=== PATIENT | male | born 1940 | race Caucasian/White ===

== ENCOUNTER 2017-10-09 11:56 | Emergency (ER) | payer MEDICARE, OTHER ==
[~2017-10-09] VITALS: Ht 167.6 cm; Wt 73.0 kg
[~2017-10-09 11:56] MED LIST: AMOX500T10 PO; ASPI-715 PO; ASPI81TA94 PO; AZIT-1 PO; BP MEDS; CEPH-13 PO; CHOL10005 PO; FAMO20TA28 PO; HYDR-385 PO; IBUP-2708 PO; LORA-1456 PO; MECL12.5 PO; MELA5TAB6 PO; OMEP-125 PO; OXYC-373 PO; OXYC-865 PO; PNEU0.5D3 IM; PRED20TA6 PO; ROBC PO; ROSU20TA23 PO; SIMV-44 PO; SIMV-54 PO; TAM4 PO; TAMS0.4C70 PO; TETR15DR81 OP; TRAM-420 PO; TRAZ-133 PO; TRAZ-156 PO
--- NOTE | 2017-10-09 12:07 | ER Report ---
History and Physical Time Seen By MD: 12:06 HPI/ROS CHIEF COMPLAINT: Left-sided rib pain HISTORY OF PRESENT ILLNESS: 76-year-old male patient presents to emergency room with complaint of left-sided rib pain. Patient states that he's been having rib pain for the past month. He states that over last several days been significant and worse. Patient states he feels like the pain radiates into his back. He denies any nausea, vomiting or diarrhea. States he does have increasing discomfort with deep inspiration. Patient denies any injury to the area. Patient states he did have an episode of sneezing where he had 6-10 sneezes in quick secession. Patient states after that he has had pain. Patient states it radiates to the middle of his back. The patient has been taking tramadol with little improvement. REVIEW OF SYSTEMS: Respiratory: No cough, no dyspnea. Cardiovascular: No chest pain, no palpitations. Gastrointestinal: No vomiting, no abdominal pain. Musculoskeletal: As Noted above Allergies: Coded Allergies: No Known Drug Allergies (Verified , 10/09/17) Home Meds Active Scripts Hydrocodone Bit/Acetaminophen (HYDROCODON-ACETAMINOPHEN 5-325) 1 Each Tablet, 1 EACH PO Q4-6H Y for PAIN, #20 TAB Prov:JERONIMO COURTNEY 10/09/17 Tramadol Hcl (TRAMADOL HCL) 50 Mg Tablet, 50 MG PO Q4-6H Y for prn, #12 TAB Prov:FRANCESCO KENT PA-C 09/08/17 Rosuvastatin Calcium (CRESTOR) 20 Mg Tablet, 20 MG PO QDAY, #30 TAB 9 Refills Prov:CHASIDY RICHARDSON MD 06/21/16 Trazodone Hcl (TRAZODONE HCL) 50 Mg Tablet, 0.5 TAB PO QHS, #90 TAB 3 Refills Prov:CHASIDY RICHARDSON MD 06/21/16 Tamsulosin Hcl (TAMSULOSIN HCL) 0.4 Mg Cap.er.24h, 0.4 MG PO QODAY, #90 CAP 3 Refills Prov:CHASIDY RICHARDSON MD 06/21/16 Reported Medications Melatonin (MELATONIN) 5 Mg Tablet, 5 MG PO QHS 04/09/17 Aspirin (ASPIRIN) 81 Mg Tab.chew, 1 TAB PO QDAY, TAB.CHEW TAKE 1 TABLET BY MOUTH EVERY DAY 10/24/14 Past Medical/Surgical History Patient has a past medical history of hypertension, hyperlipidemia, reflux, kidney stone, joint pain, arthritis, fractures, stroke, alcohol abuse, depression. Patient has surgical history of appendectomy, prostate surgery, left shoulder replacement, eye surgery 4, bilateral cataract surgery. Reviewed Nurses Notes: Yes Hx Smoking: No Smoking Status: Former Smoker Exposure to Second Hand Smoke?: No Hx Substance Use Disorder: No Hx Alcohol Use: Yes Constitutional Vital Sign - Last 24 Hours 10/09/17 12:09 Temp 97.6 Pulse 78 Resp 18 B/P (MAP) 151/88 Pulse Ox 95 O2 Delivery Room Air Physical Exam General Appearance: The patient is alert, has no immediate need for airway protection and no current signs of toxicity. Respiratory: Chest is non tender, lungs are clear to auscultation. Cardiac: regular rate and rhythm Gastrointestinal: Abdomen is soft and non tender, no masses, bowel sounds normal. Musculoskeletal: Neck: Neck is supple and non tender. Extremities have full range of motion and are non tender. He has tenderness to the left side of the ribs, radiate around to the back. There is no bruising noted. No tenderness to the spine. Skin: No rashes or lesions. DIFFERENTIAL DIAGNOSIS: After history and physical exam differential diagnosis was considered for contusion, fracture, sprain. Medical Decision Making EKG/Imaging Imaging INDICATION: rib pain. DATE: 10/09/2017 1:07 PM. TECHNIQUE: CHEST PA AND LAT, RIBS LEFT, THORACIC SPINE 3 VIEWS COMPARISON: Chest radiograph of March 25, 2017 FINDINGS: CHEST: Heart size is normal. The thoracic aorta is mildly tortuous but not enlarged. No effusion, consolidation, or pneumothorax. Mild diffuse bronchial wall thickening. Left shoulder prosthesis is noted. There is a screw in the proximal right humerus. RIBS: A BB marker has been placed over the left lower rib cage. An arrow has also been placed. There is a fracture of the left eighth rib anterolaterally. There may also be a seventh rib fracture in a similar position, though this is less well-defined. Thoracic spine: Vertebral body heights are maintained and there is no conspicuous fracture. There are multilevel degenerative findings. IMPRESSION: Left eighth anterolateral rib fracture and possible left seventh rib fracture. Report Dictated By: Darya Palm MD at 10/09/2017 1:07 PM Report E-Signed By: Darya Palm MD at 10/09/2017 1:17 PM INDICATION: rib pain. DATE: 10/09/2017 1:07 PM. TECHNIQUE: CHEST PA AND LAT, RIBS LEFT, THORACIC SPINE 3 VIEWS COMPARISON: Chest radiograph of March 25, 2017 FINDINGS: CHEST: Heart size is normal. The thoracic aorta is mildly tortuous but not enlarged. No effusion, consolidation, or pneumothorax. Mild diffuse bronchial wall thickening. Left shoulder prosthesis is noted. There is a screw in the proximal right humerus. RIBS: A BB marker has been placed over the left lower rib cage. An arrow has also been placed. There is a fracture of the left eighth rib anterolaterally. There may also be a seventh rib fracture in a similar position, though this is less well-defined. Thoracic spine: Vertebral body heights are maintained and there is no conspicuous fracture. There are multilevel degenerative findings. IMPRESSION: Left eighth anterolateral rib fracture and possible left seventh rib fracture. Report Dictated By: Darya Palm MD at 10/09/2017 1:07 PM Report E-Signed By: Darya Palm MD at 10/09/2017 1:17 PM TECHNIQUE: CHEST PA AND LAT, RIBS LEFT, THORACIC SPINE 3 VIEWS COMPARISON: Chest radiograph of March 25, 2017 FINDINGS: CHEST: Heart size is normal. The thoracic aorta is mildly tortuous but not enlarged. No effusion, consolidation, or pneumothorax. Mild diffuse bronchial wall thickening. Left shoulder prosthesis is noted. There is a screw in the proximal right humerus. RIBS: A BB marker has been placed over the left lower rib cage. An arrow has also been placed. There is a fracture of the left eighth rib anterolaterally. There may also be a seventh rib fracture in a similar position, though this is less well-defined. Thoracic spine: Vertebral body heights are maintained and there is no conspicuous fracture. There are multilevel degenerative findings. IMPRESSION: Left eighth anterolateral rib fracture and possible left seventh rib fracture. Report Dictated By: Darya Palm MD at 10/09/2017 1:07 PM Report E-Signed By: Darya Palm MD at 10/09/2017 1:17 PM ED Course/Re-evaluation ED Course Patient was medicated exam room, history and physical obtained. Differential diagnoses were considered. X-rays done of the left ribs, thoracic spine. The x- ray showed a rib fracture to rib #8 as well as possible fractured rib #7. I discussed findings with the patient and his . We will go ahead and treat him with hydrocodone. He is to limit his activity by pain. Encouraged him to splint when sneezing or coughing. He is follow-up with his primary care provider in the next week. He is return to emergency room if condition worsens. Patient is verbalized understanding and agreement. Decision to Disposition Date: Oct 09, 2017 Decision to Disposition Time: 13:30 Depart Departure Latest Vital Signs Vital Signs Date Time Temp Pulse Resp B/P (MAP) Pulse Ox O2 Delivery O2 Flow Rate FiO2 10/09/17 12:09 97.6 78 18 151/88 95 Room Air Impression: Primary Impression: Ribs, multiple fractures Condition: Improved Disposition: HOME OR SELF-CARE Referrals: LEONARDO VILLA (PCP) New Scripts Hydrocodone Bit/Acetaminophen (HYDROCODON-ACETAMINOPHEN 5-325) 1 Each Tablet 1 EACH PO Q4-6H Y for PAIN, #20 TAB Prov: JERONIMO COURTNEY 10/09/17 Patient Instructions: Rib Fracture (ED) Additional Instructions: Limit activity by pain. Increase fluid intake. Get plenty of rest. Follow up with your primary care provider in the next week. You may take ibuprofen as needed for pain in addition to the pain medication. Try splinting the ribs when coughing or sneezing. Problem Qualifiers Primary Impression: Ribs, multiple fractures Encounter type: initial encounter Fracture type: closed Laterality: left Qualified Codes: S22.42XA - Multiple fractures of ribs, left side, initial encounter for closed fracture JERONIMO COURTNEY Oct 09, 2017 12:07
[2017-10-09 12:09] VITALS: BP 151/88
--- NOTE | 2017-10-09 13:21 | RADIOLOGY IMAGING REPORT ---
FACILITY: [facility] PATIENT NAME: Sheldon Lacy : 1940 MR: [id number] V: [id number] EXAM DATE: ORDERING PHYSICIAN: JERONIMO COURTNEY TECHNOLOGIST: Location: [facility] Patient: Sheldon Lacy : 1940 Visit/Account:[id number] Date of Sevice: 10/09/2017 INDICATION: rib pain. DATE: 10/09/2017 1:07 PM. TECHNIQUE: CHEST PA AND LAT, RIBS LEFT, THORACIC SPINE 3 VIEWS COMPARISON: Chest radiograph of March 25, 2017 FINDINGS: CHEST: Heart size is normal. The thoracic aorta is mildly tortuous but not enlarged. No effusion, con solidation, or pneumothorax. Mild diffuse bronchial wall thickening. Left shoulder prosthesis is note d. There is a screw in the proximal right humerus. RIBS: A BB marker has been placed over the left lower rib cage. An arrow has also been placed. There is a fracture of the left eighth rib anterolaterally. There may also be a seventh rib fracture in a s imilar position, though this is less well-defined. Thoracic spine: Vertebral body heights are maintained and there is no conspicuous fracture. There are multilevel degenerative findings. IMPRESSION: Left eighth anterolateral rib fracture and possible left seventh rib fracture. Report Dictated By: Darya Palm MD at 10/09/2017 1:07 PM Report E-Signed By: Darya Palm MD at 10/09/2017 1:17 PM WSN:[id number]
--- NOTE | 2017-10-09 13:21 | RADIOLOGY IMAGING REPORT ---
FACILITY: [facility] PATIENT NAME: Sheldon Lacy : 1940 MR: [id number] V: [id number] EXAM DATE: ORDERING PHYSICIAN: JERONIMO COURTNEY TECHNOLOGIST: Location: [facility] [place] Patient: Sheldon Lacy : 1940 Visit/Account:[id number] Date of Sevice: 10/09/2017 INDICATION: rib pain. DATE: 10/09/2017 1:07 PM. TECHNIQUE: CHEST PA AND LAT, RIBS LEFT, THORACIC SPINE 3 VIEWS COMPARISON: Chest radiograph of March 25, 2017 FINDINGS: CHEST: Heart size is normal. The thoracic aorta is mildly tortuous but not enlarged. No effusion, con solidation, or pneumothorax. Mild diffuse bronchial wall thickening. Left shoulder prosthesis is note d. There is a screw in the proximal right humerus. RIBS: A BB marker has been placed over the left lower rib cage. An arrow has also been placed. There is a fracture of the left eighth rib anterolaterally. There may also be a seventh rib fracture in a s imilar position, though this is less well-defined. Thoracic spine: Vertebral body heights are maintained and there is no conspicuous fracture. There are multilevel degenerative findings. IMPRESSION: Left eighth anterolateral rib fracture and possible left seventh rib fracture. Report Dictated By: Darya Palm MD at 10/09/2017 1:07 PM Report E-Signed By: Darya Palm MD at 10/09/2017 1:17 PM WSN:[id number]
--- NOTE | 2017-10-09 13:22 | RADIOLOGY IMAGING REPORT ---
FACILITY: [facility] [place] PATIENT NAME: Sheldon Lacy : 1940 MR: [id number] V: [id number] EXAM DATE: ORDERING PHYSICIAN: JERONIMO COURTNEY TECHNOLOGIST: Location: [facility] Patient: Sheldon Lacy : 1940 Visit/Account:[id number] Date of Sevice: 10/09/2017 INDICATION: rib pain. DATE: 10/09/2017 1:07 PM. TECHNIQUE: CHEST PA AND LAT, RIBS LEFT, THORACIC SPINE 3 VIEWS COMPARISON: Chest radiograph of March 25, 2017 FINDINGS: CHEST: Heart size is normal. The thoracic aorta is mildly tortuous but not enlarged. No effusion, con solidation, or pneumothorax. Mild diffuse bronchial wall thickening. Left shoulder prosthesis is note d. There is a screw in the proximal right humerus. RIBS: A BB marker has been placed over the left lower rib cage. An arrow has also been placed. There is a fracture of the left eighth rib anterolaterally. There may also be a seventh rib fracture in a s imilar position, though this is less well-defined. Thoracic spine: Vertebral body heights are maintained and there is no conspicuous fracture. There are multilevel degenerative findings. IMPRESSION: Left eighth anterolateral rib fracture and possible left seventh rib fracture. Report Dictated By: Darya Palm MD at 10/09/2017 1:07 PM Report E-Signed By: Darya Palm MD at 10/09/2017 1:17 PM WSN:[id number]
[2017-10-09] MEDS ORDERED: HYDR-385 PO (13:28)
== END 2017-10-09 13:37 | disposition home or self-care (01) ==
LOC: ER 12:10
DX: S22.42XA Multiple fractures of ribs, left side, initial encounter for closed fracture (principal)
CPT/HCPCS: 71046; 71100; 72072; 99283

== ENCOUNTER → 2017-12-04 | Outpatient (CLI) | payer MEDICARE, OTHER ==
[~2017-12-04] MED LIST changes: +CHON250C2 PO; +CYA1000 PO; +GLUC100026 PO; +MOM PO; +POTA99TA6 PO
--- NOTE | 2017-12-04 10:29 | RADIOLOGY IMAGING REPORT ---
FACILITY: PATIENT NAME: Sheldon Lacy : 1940 MR: [id number] V: [id number] EXAM DATE: ORDERING PHYSICIAN: LEONARDO VILLA TECHNOLOGIST: Location: [facility] Patient: Sheldon Lacy : 1940 Visit/Account:[id number] Date of Sevice: 12/04/2017 DEXA Scan Clinical history: Primary osteoporosis, fractured nonhealing ribs. Comparison: None available. LUMBAR SPINE: The bone mineral density (BMD) measured from L1-L4 correlates with a Z-score -0.7 and a T-score of -1 .6 which is osteopenia as defined by the World Health Organization. The corresponding risk of fractu re in the lumbar spine is 3-4 times increased compared with a young adult reference population. HIP: Bone mineral density (BMD) measured in the Left total hip region correlates with a Z-score -0.8 and a T-score of -2 which is osteopenia as defined by the World Health Organization. The corresponding ri sk of fracture in the hip is 4 times increased compared with a young adult reference population. T score left femoral neck -2.5 Bone mineral density (BMD) measured in the Femoral Neck region measures 0.741 g/cm2. Impression: 1. Lumbar spine: Osteopenia. 2. Left Hip: Osteopenia. 3. Femoral Neck: Bone Mineral Density is 0.741 g/cm2 The next DEXA scan of this patient should include the following sites: L1-L4 and the left hip. FRAX? WHO Fracture Risk Assessment Tool link: <http://www.shef.ac.uk/FRAX/tool.jsp?[email or web address]> PLEASE NOTE: 1) The World Health Organization defines low BMD as follows: T-score Normal > -1 Osteopenia < -1 and > -2.5 Osteoporosis < -2.5 without fractures Established osteoporosis < -2.5 with fractures 2) In general, you may wish to consider: Diagnosis Treatment Follow-up DEXA Normal BMD Prevention 2-3 years Osteopenia Prevention/therapy 1-2 years Osteoporosis Therapy Yearly 3) Fracture risk estimated from the T-score is more accurate for vertebral fractures (often spontane ous) than for hip fractures. Report Dictated By: Libia Higgins MD at 12/04/2017 10:23 AM Report E-Signed By: Libia Higgins MD at 12/04/2017 10:24 AM WSN:[id number]
== END ==
LOC: RAD 00:53
PROVIDERS: ATTEND Nurse Practitioner Family
DX: Z13.820 Encounter for screening for osteoporosis (principal); M85.89 Other specified disorders of bone density and structure, multiple sites
CPT/HCPCS: 77080

== ENCOUNTER → 2017-12-05 | Outpatient (CLI) | payer MEDICARE, OTHER | LOC: AUD 11:00 | PROVIDERS: ATTEND Otolaryngology | DX: R42 Dizziness and giddiness (principal); H90.3 Sensorineural hearing loss, bilateral | CPT/HCPCS: 92557; 92570 ==

== ENCOUNTER 2017-12-20 13:07 | Emergency (ER) | payer MEDICARE, OTHER ==
--- NOTE | 2017-12-20 13:17 | ER Report ---
History and Physical Time Seen By MD: 13:17 HPI/ROS CHIEF COMPLAINT: Weakness, shortness of breath over the past week HISTORY OF PRESENT ILLNESS: Patient is a 77-year-old male who presents emergency department with complaint of weakness and dyspnea over the past 5-7 days. He denies actual chest pain or pressure. States that he's had a very stressful week. Patient in April 2017 and had a shoulder replacement and was doing well with physical therapy and then this past winter he fell resulting in multiple rib fractures to the affected side this prevented him from continuing physical therapy. He has some anxiety and stress about that. Patient also reports just feeling washed out and tired. He denies cough or fevers or chills he denies any abdominal pain. Denies nausea vomiting or diarrhea. REVIEW OF SYSTEMS: Constitutional: No fever, no chills. Eyes: No discharge. ENT: No sore throat. Cardiovascular: No chest pain, no palpitations. Respiratory: Shortness of breath, no cough Gastrointestinal: No abdominal pain, no vomiting. Genitourinary: No hematuria. Musculoskeletal: No back pain. Skin: No rashes. Neurological: No headache. Allergies: Coded Allergies: No Known Drug Allergies (Verified , 10/09/17) Home Meds Active Scripts Rosuvastatin Calcium (CRESTOR) 20 Mg Tablet, 20 MG PO QDAY, #30 TAB 9 Refills Prov:CHASIDY RICHARDSON MD 06/21/16 Trazodone Hcl (TRAZODONE HCL) 50 Mg Tablet, 0.5 TAB PO QHS, #90 TAB 3 Refills Prov:CHASIDY RICHARDSON MD 06/21/16 Tamsulosin Hcl (TAMSULOSIN HCL) 0.4 Mg Cap.er.24h, 0.4 MG PO QODAY, #90 CAP 3 Refills Prov:CHASIDY RICHARDSON MD 06/21/16 Reported Medications Cholecalciferol (Vitamin D3) (VITAMIN D3) 1,000 Unit Tablet, 1000 UNIT PO, TAB 11/26/17 Cyanocobalamin (Vitamin B-12) (VITAMIN B-12) 1,000 Mcg Tablet, 1000 MCG PO 11/26/17 Potassium Gluconate (POTASSIUM) 99 Mg Tablet, 99 MG PO 11/26/17 Chondroitin Sulfate A (CHONDROITIN SULFATE) Unknown Strength Capsule, PO, CAPSULE 11/26/17 Glucosamine Sulfate 2KCL (GLUCOSAMINE) 1,000 Mg Tablet, 1000 MG PO 11/26/17 Omeprazole (OMEPRAZOLE) 20 Mg Capsule.dr, 1 CAP PO QDAY, CAP 11/26/17 Melatonin (MELATONIN) 5 Mg Tablet, 5 MG PO QHS 04/09/17 Aspirin (ASPIRIN) 81 Mg Tab.chew, 1 TAB PO QDAY, TAB.CHEW TAKE 1 TABLET BY MOUTH EVERY DAY 10/24/14 Discontinued Reported Medications Magnesium Hydroxide (MILK OF MAGNESIA) 400 Mg/5 Ml Oral.susp, 250 MG PO, BOTTLE 11/26/17 Discontinued Scripts Hydrocodone Bit/Acetaminophen (HYDROCODON-ACETAMINOPHEN 5-325) 1 Each Tablet, 1 EACH PO Q4-6H Y for PAIN, #20 TAB Prov:JERONIMO COURTNEY DIRECTOR OF MANAGED SERVICES 10/09/17 Tramadol Hcl (TRAMADOL HCL) 50 Mg Tablet, 50 MG PO Q4-6H Y for prn, #12 TAB Prov:FRANCESCO KENT PA-C 09/08/17 Past Medical/Surgical History Patient with past medical history hyperlipidemia, vertigo, 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 Gastroesophageal reflux disease, history of multiple rib fractures, history of bilateral renal cysts. Hx Smoking: No Smoking Status: Former Smoker Exposure to Second Hand Smoke?: No Hx Substance Use Disorder: No Hx Alcohol Use: Yes Constitutional Vital Sign - Last 24 Hours 12/20/17 13:17 Temp 97.4 Pulse 89 Resp 16 B/P (MAP) 162/91 Pulse Ox 94 O2 Delivery Room Air Physical Exam General/Constitutional: Patient is awake, alert, nontoxic and in no acute respiratory distress. Head: Normocephalic and atraumatic. Eyes: Conjunctival clear, Ears:External canals are clear. Tympanic membranes are clear with normal landmarks and light reflex. Nares: No rhinorrhea or bleeding. Turbinates are pink and moist. Oropharyngeal: Mucous membranes are moist. There is no pharyngeal erythema or exudate. There are no palatal petechiae. Uvula is midline and symmetrical. Neck: Supple, no adenopathy. Cardiovascular: Heart is regular rate and rhythm without audible murmurs, rubs or gallops. Pulmonary: Lungs are clear to auscultation bilaterally. There are no wheezes, rales, or rhonchi. Chest rise is symmetrical Abdomen: Soft, nontender, no guarding or peritoneal signs. Extremities: No gross deformities, No peripheral cyanosis. Able to move all 4 extremities. Neuro: Alert and oriented X3, Skin: No rashes, skin is warm dry and well perfused. Medical Decision Making Data Points Result Diagram: 12/20/17 1357 12/20/17 1357 Laboratory Hematology Test 12/20/17 13:57 Red Blood Count 5.13 M/uL (4.00-5.60) Mean Corpuscular Volume 97.9 fL (80.0-96.0) Mean Corpuscular Hemoglobin 33.6 pg (26.0-33.0) Mean Corpuscular Hemoglobin Concent 34.4 g/dL (32.0-36.0) Red Cell Distribution Width 13.2 % (11.5-14.5) Mean Platelet Volume 7.5 fL (7.2-11.1) Neutrophils (%) (Auto) 70.3 % (39.4-72.5) Lymphocytes (%) (Auto) 18.8 % (17.6-49.6) Monocytes (%) (Auto) 8.0 % (4.1-12.4) Eosinophils (%) (Auto) 2.3 % (0.4-6.7) Basophils (%) (Auto) 0.6 % (0.3-1.4) Nucleated RBC Relative Count (auto) 0.0 /100WBC Neutrophils # (Auto) 4.6 K/uL (2.0-7.4) Lymphocytes # (Auto) 1.2 K/uL (1.3-3.6) Monocytes # (Auto) 0.5 K/uL (0.3-1.0) Eosinophils # (Auto) 0.1 K/uL (0.0-0.5) Basophils # (Auto) 0.0 K/uL (0.0-0.1) Nucleated RBC Absolute Count (auto) 0.00 K/uL Peripheral Blood Smear No Y/N Prothrombin Time 13.9 seconds (12.0-14.4) Prothromb Time International Ratio 1.07 Activated Partial Thromboplast Time 33 seconds (23-35) D-Dimer Quantitative (PE/DVT) < 0.27 ug/ml (0-0.50) Sodium Level 136 mmol/L (137-145) Potassium Level 3.8 mmol/L (3.5-5.0) Chloride Level 102 mmol/L (98-107) Carbon Dioxide Level 23 mmol/L (22-30) Blood Urea Nitrogen 21 mg/dl (9-21) Creatinine 1.10 mg/dl (0.66-1.25) Glomerular Filtration Rate Calc > 60.0 Random Glucose 117 mg/dl (75-110) Calcium Level 10.1 mg/dl (8.4-10.2) Total Bilirubin 0.6 mg/dl (0.2-1.3) Aspartate Amino Transf (AST/SGOT) 38 U/L (0-35) Alanine Aminotransferase (ALT/SGPT) 48 U/L (0-56) Alkaline Phosphatase 77 U/L (0-126) Troponin I < 0.012 ng/ml B-Type Natriuretic Peptide 13 pg/ml (0-100) Total Protein 7.3 gm/dl (6.3-8.2) Albumin 4.1 g/dl (3.5-5.0) Chemistry Test 12/20/17 13:57 White Blood Count 6.6 k/uL (4.5-11.0) Red Blood Count 5.13 M/uL (4.00-5.60) Hemoglobin 17.3 g/dL (14.0-18.0) Hematocrit 50.2 % (42.0-52.0) Mean Corpuscular Volume 97.9 fL (80.0-96.0) Mean Corpuscular Hemoglobin 33.6 pg (26.0-33.0) Mean Corpuscular Hemoglobin Concent 34.4 g/dL (32.0-36.0) Red Cell Distribution Width 13.2 % (11.5-14.5) Platelet Count 182 K/uL (150-450) Mean Platelet Volume 7.5 fL (7.2-11.1) Neutrophils (%) (Auto) 70.3 % (39.4-72.5) Lymphocytes (%) (Auto) 18.8 % (17.6-49.6) Monocytes (%) (Auto) 8.0 % (4.1-12.4) Eosinophils (%) (Auto) 2.3 % (0.4-6.7) Basophils (%) (Auto) 0.6 % (0.3-1.4) Nucleated RBC Relative Count (auto) 0.0 /100WBC Neutrophils # (Auto) 4.6 K/uL (2.0-7.4) Lymphocytes # (Auto) 1.2 K/uL (1.3-3.6) Monocytes # (Auto) 0.5 K/uL (0.3-1.0) Eosinophils # (Auto) 0.1 K/uL (0.0-0.5) Basophils # (Auto) 0.0 K/uL (0.0-0.1) Nucleated RBC Absolute Count (auto) 0.00 K/uL Peripheral Blood Smear No Y/N Prothrombin Time 13.9 seconds (12.0-14.4) Prothromb Time International Ratio 1.07 Activated Partial Thromboplast Time 33 seconds (23-35) D-Dimer Quantitative (PE/DVT) < 0.27 ug/ml (0-0.50) Glomerular Filtration Rate Calc > 60.0 Calcium Level 10.1 mg/dl (8.4-10.2) Total Bilirubin 0.6 mg/dl (0.2-1.3) Aspartate Amino Transf (AST/SGOT) 38 U/L (0-35) Alanine Aminotransferase (ALT/SGPT) 48 U/L (0-56) Alkaline Phosphatase 77 U/L (0-126) Troponin I < 0.012 ng/ml B-Type Natriuretic Peptide 13 pg/ml (0-100) Total Protein 7.3 gm/dl (6.3-8.2) Albumin 4.1 g/dl (3.5-5.0) Coagulation Test 12/20/17 13:57 Prothrombin Time 13.9 seconds Prothromb Time International Ratio 1.07 Activated Partial Thromboplast Time 33 seconds D-Dimer Quantitative (PE/DVT) < 0.27 ug/ml EKG/Imaging EKG Interpretation EKG shows normal sinus rhythm with ventricular rate of 87 bpm. Patient with first-degree AV block Imaging CXR-neg ED Course/Re-evaluation Clinical Indication for ER IV: Hydration, IV Access ED Course 12/20/2017 1:34:36 pm patient with dyspnea and weakness. I noted to be slightly tachycardic on exam. Plan at this time will be cardiac workup including a d-dimer to risk stratify for pulmonary embolism. Decision to Disposition Date: Dec 20, 2017 Decision to Disposition Time: 15:11 Depart Departure Latest Vital Signs Vital Signs Date Time Temp Pulse Resp B/P (MAP) Pulse Ox O2 Delivery O2 Flow Rate FiO2 12/20/17 13:17 97.4 89 16 162/91 94 Room Air Impression: Primary Impression: Anxiety Condition: Improved Disposition: HOME OR SELF-CARE Referrals: LEONARDO VILLA (PCP) 1 Week New Scripts Alprazolam (XANAX) 0.5 Mg Tablet 1 TAB PO TID for anxiety, #10 TAB 0 Refills Prov: TORO RAMIREZ MD 12/20/17 Patient Instructions: Anxiety (ED), Dyspnea (ED) TORO RAMIREZ MD Dec 20, 2017 13:17
[2017-12-20] MEDS ORDERED: NS(*) 0.9% 1000 ML BAG 1,000 ML IV ONE (13:30)
--- NOTE | 2017-12-20 13:49 | EKG ---
FACILITY: [facility] PATIENT NAME: TORO PALACIOS : [id number] MR: [id number] V: [id number] EXAM DATE: ORDERING PHYSICIAN: TORO RAMIREZ TECHNOLOGIST: JONY Gonzales Reason : ANXIETY Blood Pressure : / mmHG Vent. Rate : 087 BPM Atrial Rate : 087 BPM P-R Int : 252 ms QRS Dur : 084 ms QT Int : 356 ms P-R-T Axes : 061 067 058 degrees QTc Int : 428 ms Sinus rhythm with 1st degree AV block with premature atrial complexes Septal infarct , age undetermined Abnormal ECG When compared with ECG of 02-OCT-2016 16:09, premature atrial complexes are now present T wave inversion no longer evident in Inferior leads Confirmed by ANDREA VELA ([id number]) on 12/20/2017 4:40:36 PM Referred By: JAMES Confirmed By:ANDREA VELA
[2017-12-20 14:09] LABS: PLATELET COUNT, AUTOMATED 182 K/uL (150-450)
[2017-12-20 14:20] LABS: INR 1.07
--- NOTE | 2017-12-20 15:10 | RADIOLOGY IMAGING REPORT ---
FACILITY: [facility] PATIENT NAME: Sheldon Lacy : 1940 MR: [id number] V: [id number] EXAM DATE: ORDERING PHYSICIAN: SHELDON RAMIREZ TECHNOLOGIST: [place] [facility] [place] Sheldon Lacy : 1940 Visit/Account:[id number] Date of Sevice: 12/20/2017 2 VIEWS CHEST INDICATION: Respiratory distress. COMPARISON: 10/09/2017. FINDINGS: Cardiomediastinal silhouette and pulmonary vessels within normal limits. There is no focal infiltrate or lobar consolidation. There is no pneumothorax or pleural effusion. No nodule. Upper abdomen is unremarkable. No acute bony abnormality. IMPRESSION: 1. No acute cardiopulmonary process. Report Dictated By: Teo Marquez at 12/20/2017 3:06 PM Report E-Signed By: Teo Marquez at 12/20/2017 3:07 PM WSN:[id number]
[2017-12-20] MEDS ORDERED: ALPR-429 PO (15:12)
[2017-12-20 15:24] VITALS: BP 114/84
== END 2017-12-20 15:30 | disposition home or self-care (01) ==
LOC: ER 13:11
DX: F41.9 Anxiety disorder, unspecified (principal); R00.0 Tachycardia, unspecified; R94.31 Abnormal electrocardiogram [ECG] [EKG]; I44.0 Atrioventricular block, first degree
CPT/HCPCS: 71046; 83880; 84484; 85025; 85379; 85610; 85730; 93005; 96360; 99284; J7030; 82040; 82247; 82310; 82374; 82435; 82565; 82947; 84075; 84132; 84155; 84295; 84450; 84460; 84520

== ENCOUNTER → 2018-04-22 | Outpatient (CLI) | payer MEDICARE, OTHER ==
[~2018-04-22] MED LIST changes: +ALPR-429 PO; -TRAZ-156 PO; +TRAZ50TA34 PO
[2018-04-22 11:13] LABS: LDL CHOLESTEROL 84 mg/dl
== END ==
LOC: LAB 10:16
PROVIDERS: ATTEND Nurse Practitioner Family
DX: Z12.5 Encounter for screening for malignant neoplasm of prostate (principal); R63.4 Abnormal weight loss; R42 Dizziness and giddiness; W19.XXXA Unspecified fall, initial encounter; M80.80XS Other osteoporosis with current pathological fracture, unspecified site, sequela; R63.0 Anorexia; F32.1 Major depressive disorder, single episode, moderate; Z79.899 Other long term (current) drug therapy; E55.9 Vitamin D deficiency, unspecified; E53.8 Deficiency of other specified B group vitamins; R73.03 Prediabetes
CPT/HCPCS: 36415; 82040; 82247; 82306; 82310; 82374; 82435; 82465; 82565; 82607; 82947; 83036; 83718; 84075; 84132; 84153; 84155; 84295; 84443; 84450; 84460; 84478; 84520; 85027

== ENCOUNTER 2018-06-15 17:44 | Emergency (ER) | payer MEDICARE, OTHER ==
--- NOTE | 2018-06-15 17:52 | ER Report ---
History and Physical Time Seen By MD: 17:52 HPI/ROS CHIEF COMPLAINT: Chest and shoulder pain HISTORY OF PRESENT ILLNESS: This is a 77-year-old male who presents to the emergency department for chest and shoulder pain. Patient states that he has had multiple shoulder surgeries most recently on the left approximately 4 months ago. He's been through rehabilitation for his shoulder. Patient states that early the spring he had a slip and fall, broke 4 ribs on the left side which has been causing some intermittent chronic discomfort. Patient states that over the last 2-3 days he's had an increased pain in his left shoulder into his left chest. Patient states that he typically takes Tylenol for his pain however over the last couple days he's used a couple of his 's hydrocodone. Patient became concerned with the pain in the chest patient denies diaphoresis, no aches or chills. No shortness of breath. No rashes. No headaches. Patient also states that he feels that he can feel the muscle righting along the broken ribs wants to make sure that there is nothing else wrong. REVIEW OF SYSTEMS: Constitutional: No fever, no chills. Eyes: No discharge. ENT: No sore throat. Cardiovascular: As above. Respiratory: No cough, no shortness of breath. Gastrointestinal: No abdominal pain, no vomiting. Genitourinary: No hematuria. Musculoskeletal: As above. Skin: No rashes. Neurological: No headache. Allergies: Coded Allergies: No Known Drug Allergies (Verified , 06/15/18) Home Meds Active Scripts Cyclobenzaprine Hcl (CYCLOBENZAPRINE HCL) 10 Mg Tablet, 10 MG PO TID, #12 TAB 0 Refills Prov:DARRIN SHEPARD [facility]-BC 06/15/18 Rosuvastatin Calcium (CRESTOR) 20 Mg Tablet, 20 MG PO QDAY, #30 TAB 9 Refills Prov:CHASIDY RICHARDSON MD 06/21/16 Trazodone Hcl (TRAZODONE HCL) 50 Mg Tablet, 0.5 TAB PO QHS, #90 TAB 3 Refills Prov:CHASIDY RICHARDSON MD 06/21/16 Tamsulosin Hcl (TAMSULOSIN HCL) 0.4 Mg Cap.er.24h, 0.4 MG PO QODAY, #90 CAP 3 Refills Prov:CHASIDY RICHARDSON MD 06/21/16 Reported Medications Folic Acid (FOLIC ACID) 0.4 Mg Tablet, 0.4 MG PO QDAY 06/15/18 Cholecalciferol (Vitamin D3) (VITAMIN D3) 1,000 Unit Tablet, 1000 UNIT PO, TAB 11/26/17 Cyanocobalamin (Vitamin B-12) (VITAMIN B-12) 1,000 Mcg Tablet, 1000 MCG PO 11/26/17 Omeprazole (OMEPRAZOLE) 20 Mg Capsule.dr, 1 CAP PO QDAY, CAP 11/26/17 Aspirin (ASPIRIN) 81 Mg Tab.chew, 1 TAB PO QDAY, TAB.CHEW TAKE 1 TABLET BY MOUTH EVERY DAY 10/24/14 Discontinued Reported Medications Potassium Gluconate (POTASSIUM) 99 Mg Tablet, 99 MG PO 11/26/17 Chondroitin Sulfate A (CHONDROITIN SULFATE) Unknown Strength Capsule, PO, CAP RADHA 11/26/17 Glucosamine Sulfate 2KCL (GLUCOSAMINE) 1,000 Mg Tablet, 1000 MG PO 11/26/17 Melatonin (MELATONIN) 5 Mg Tablet, 5 MG PO QHS 04/09/17 Discontinued Scripts Alprazolam (XANAX) 0.5 Mg Tablet, 1 TAB PO TID for anxiety, #10 TAB 0 Refills Prov:TORO RAMIREZ MD 12/20/17 Past Medical/Surgical History The patient has a past medical and surgical history of vertigo, blind in left eye, decreased vision in the right eye, hypertension, hypercholesterolemia, GERD, kidney stone, prostatitis, prostatectomy, generalized arthritis, possible stroke, appendectomy, bicep repair and right rotator cuff repair, left total shoulder, laser surgery to both eyes. Reviewed Nurses Notes: Yes Hx Smoking: No Smoking Status: Former Smoker Exposure to Second Hand Smoke?: No Hx Substance Use Disorder: No Hx Alcohol Use: Yes Constitutional Vital Sign - Last 24 Hours 06/15/18 06/15/18 06/15/18 06/15/18 17:48 17:52 18:00 18:14 Temp 97.5 Pulse 99 88 Resp 20 B/P (MAP) 153/99 (117) 153/99 128/83 (98) Pulse Ox 93 94 O2 Delivery Room Air 06/15/18 06/15/18 06/15/18 06/15/18 18:30 18:35 19:00 19:05 Pulse 73 68 B/P (MAP) 125/82 (96) 122/86 (98) Pulse Ox 91 92 06/15/18 06/15/18 06/15/18 06/15/18 19:30 19:35 19:40 20:00 Pulse 74 75 B/P (MAP) 129/71 (90) 138/86 (103) Pulse Ox 94 94 06/15/18 06/15/18 06/15/18 20:10 20:30 20:40 Pulse 70 72 B/P (MAP) 142/88 (106) Pulse Ox 93 91 Physical Exam General Appearance: The patient is alert, has no immediate need for airway protection and no signs of toxicity. Eyes: Pupils equal and round no pallor or injection. ENT, Mouth: Mucous membranes are moist. Respiratory: There are no retractions, lungs are clear to auscultation. Cardiovascular: Regular rate and rhythm, no murmurs, clicks or rubs. Gastrointestinal: Abdomen is soft and non tender, no masses, bowel sounds normal. Neurological: Alert and oriented 4. Moving all extremities. Following all commands. No focal neuro deficits. Skin: Warm and dry, no rashes. Scar to left and right anterior shoulders. Musculoskeletal: Neck is supple non tender. Extremities increased pain to the left shoulder with abduction. Unable to perform the scarf test or back scratch test without significant pain to the left shoulder. Reproducible left anterior chest pain with deep palpation of the pectoralis muscle along the scar. DIFFERENTIAL DIAGNOSIS: After history and physical exam differential diagnosis was considered for chest pain including but not limited to myocardial ischemia, pericarditis pulmonary embolus, chest wall pain, postsurgical changes, rib fracture, pleural inflammation and pulmonary infectious causes. Medical Decision Making Data Points Result Diagram: 06/15/18 1835 06/15/18 1835 Laboratory Hematology Test 06/15/18 18:35 Red Blood Count 4.82 M/uL (4.00-5.60) Mean Corpuscular Volume 97.9 fL (80.0-96.0) Mean Corpuscular Hemoglobin 33.8 pg (26.0-33.0) Mean Corpuscular Hemoglobin Concent 34.5 g/dL (32.0-36.0) Red Cell Distribution Width 13.0 % (11.5-14.5) Mean Platelet Volume 7.5 fL (7.2-11.1) Neutrophils (%) (Auto) 59.7 % (39.4-72.5) Lymphocytes (%) (Auto) 24.6 % (17.6-49.6) Monocytes (%) (Auto) 12.0 % (4.1-12.4) Eosinophils (%) (Auto) 1.9 % (0.4-6.7) Basophils (%) (Auto) 1.8 % (0.3-1.4) Nucleated RBC Relative Count (auto) 0.0 /100WBC Neutrophils # (Auto) 3.7 K/uL (2.0-7.4) Lymphocytes # (Auto) 1.5 K/uL (1.3-3.6) Monocytes # (Auto) 0.7 K/uL (0.3-1.0) Eosinophils # (Auto) 0.1 K/uL (0.0-0.5) Basophils # (Auto) 0.1 K/uL (0.0-0.1) Nucleated RBC Absolute Count (auto) 0.00 K/uL Sodium Level 136 mmol/L (137-145) Potassium Level 4.1 mmol/L (3.5-5.0) Chloride Level 105 mmol/L (98-107) Carbon Dioxide Level 22 mmol/L (22-30) Blood Urea Nitrogen 26 mg/dl (9-21) Creatinine 1.10 mg/dl (0.66-1.25) Glomerular Filtration Rate Calc > 60.0 Random Glucose 101 mg/dl (75-110) Calcium Level 10.0 mg/dl (8.4-10.2) Total Bilirubin 0.6 mg/dl (0.2-1.3) Aspartate Amino Transf (AST/SGOT) 39 U/L (0-35) Alanine Aminotransferase (ALT/SGPT) 46 U/L (0-56) Alkaline Phosphatase 49 U/L (0-126) Troponin I < 0.012 ng/ml Total Protein 7.1 g/dl (6.3-8.2) Albumin 4.3 g/dl (3.5-5.0) Chemistry Test 06/15/18 18:35 White Blood Count 6.2 k/uL (4.5-11.0) Red Blood Count 4.82 M/uL (4.00-5.60) Hemoglobin 16.3 g/dL (14.0-18.0) Hematocrit 47.2 % (42.0-52.0) Mean Corpuscular Volume 97.9 fL (80.0-96.0) Mean Corpuscular Hemoglobin 33.8 pg (26.0-33.0) Mean Corpuscular Hemoglobin Concent 34.5 g/dL (32.0-36.0) Red Cell Distribution Width 13.0 % (11.5-14.5) Platelet Count 182 K/uL (150-450) Mean Platelet Volume 7.5 fL (7.2-11.1) Neutrophils (%) (Auto) 59.7 % (39.4-72.5) Lymphocytes (%) (Auto) 24.6 % (17.6-49.6) Monocytes (%) (Auto) 12.0 % (4.1-12.4) Eosinophils (%) (Auto) 1.9 % (0.4-6.7) Basophils (%) (Auto) 1.8 % (0.3-1.4) Nucleated RBC Relative Count (auto) 0.0 /100WBC Neutrophils # (Auto) 3.7 K/uL (2.0-7.4) Lymphocytes # (Auto) 1.5 K/uL (1.3-3.6) Monocytes # (Auto) 0.7 K/uL (0.3-1.0) Eosinophils # (Auto) 0.1 K/uL (0.0-0.5) Basophils # (Auto) 0.1 K/uL (0.0-0.1) Nucleated RBC Absolute Count (auto) 0.00 K/uL Glomerular Filtration Rate Calc > 60.0 Calcium Level 10.0 mg/dl (8.4-10.2) Total Bilirubin 0.6 mg/dl (0.2-1.3) Aspartate Amino Transf (AST/SGOT) 39 U/L (0-35) Alanine Aminotransferase (ALT/SGPT) 46 U/L (0-56) Alkaline Phosphatase 49 U/L (0-126) Troponin I < 0.012 ng/ml Total Protein 7.1 g/dl (6.3-8.2) Albumin 4.3 g/dl (3.5-5.0) EKG/Imaging EKG Interpretation 12 lead EKG: Time of EKG 1833. Rhythm: Sinus rhythm with a first-degree AV block. Ventricular rate 73 bpm. [place]: normal QRS: normal ST segments: No ST depression or elevation identified. No significant changes from the 12/20/2017 EKG. Imaging Study: Frontal and lateral views of the chest Indication: Left posterior rib pain Comparison study: December 20, 2017 Findings: PA and lateral views of the chest demonstrate no evidence of acute infiltrate. There is no evidence of pleural effusion. There is no evidence of pneumothorax. The mediastinal, cardiac, and diaphragmatic contours are unremarkable. There are old upper left rib fractures present. There is no evidence of acute left-sided rib fracture. The patient is status post bilateral shoulder surgery. IMPRESSION: No acute cardiopulmonary abnormality identified. There is no evidence of acute left-sided rib fracture. Report Dictated By: Sridhar Alanis at 06/15/2018 8:01 PM Report E-Signed By: Sridhar Alanis at 06/15/2018 8:02 PM WSN:[id number] Study: RIBS LEFT Indication: Pain Comparison study: October 09, 2017 Findings: 2 views of the left ribs demonstrates old fractures of the left fifth rib. This was present on the previous study. A skin marker was placed overlying the posterior eighth rib. No abnormalities identified in this area. There is no evidence of pleural effusion or pneumothorax on the left side. IMPRESSION: No evidence of acute left-sided rib fracture. Report Dictated By: Sridhar Alanis at 06/15/2018 8:03 PM Report E-Signed By: Sridhar Alanis at 06/15/2018 8:07 PM WSN:[id number] Location: [facility] [place] Patient: Toro Lacy : 1940 Visit/Account:[id number] Date of Sevice: 06/15/2018 SHOULDER MIN 2 VIEWS LEFT HISTORY: recurrent rib pain into chest COMPARISON: None FINDINGS: There is no evidence of acute fracture or dislocation. There are no significant degenerative changes. The acromioclavicular joint is normal in appearance. The patient is status post glenohumeral joint replacement. The appearance of the prosthesis is unremarkable. There is no evidence of scapular fracture. IMPRESSION: No acute osseous abnormality Report Dictated By: Sridhar Alanis at 06/15/2018 8:23 PM Report E-Signed By: Sridhar Alanis at 06/15/2018 8:24 PM WSN:[id number] ED Course/Re-evaluation Clinical Indication for ER IV: IV Access ED Course The patient was admitted to a room. A history of physical obtained. Differential diagnoses were considered. IV was started. A CBC, CMP and troponin were obtain ed. Lab studies unremarkable, negative troponin. Normal EKG. Ribs and chest x- ray unremarkable. No acute findings on the left shoulder. I did review the laboratory studies and the x-ray results with the patient. I did explain to him that this could be pain secondary to scar tissue and arthritis in the shoulders. I did recommend following up with physical therapy, consider ultrasound therapy and urine massage therapy for the shoulders. I also recommended that he try some home exercises for the left shoulder which may help with some of his discomfort. Patient states he has numerous exercises that he will try easing into. I did send the patient home with Flexeril and a prescription was sent to the patient's pharmacy for Flexeril. Patient had no other questions or concerns at this time and discharged home. I also suggested following up with the orthopedist the performed the surgery for further recommendations. Decision to Disposition Date: Jun 15, 2018 Decision to Disposition Time: 20:40 Depart Departure Latest Vital Signs Vital Signs Date Time Temp Pulse Resp B/P (MAP) Pulse Ox O2 Delivery O2 Flow Rate FiO2 06/15/18 20:40 72 91 06/15/18 20:30 142/88 (106) 06/15/18 17:52 97.5 20 Room Air Impression: Primary Impression: Shoulder pain, left Additional Impression: Muscular chest pain Condition: Improved Disposition: HOME OR SELF-CARE Referrals: LEONARDO VILLA (PCP) [facility] New Scripts Cyclobenzaprine Hcl (CYCLOBENZAPRINE HCL) 10 Mg Tablet 10 MG PO TID, #12 TAB 0 Refills Prov: DARRIN SHEPARD- 06/15/18 Patient Instructions: Chest Wall Pain (ED), Noncardiac Chest Pain (ED), Shoulder Pain (ED) Additional Instructions: Your laboratory studies did not show anything concerning today. The x-rays of your left shoulder, chest and ribs do not show anything concerning. Consider following up with physical therapy, massage therapy and consider ultrasound therapy for the muscular pain which are having on the left anterior chest. Take Tylenol as needed for pain. Take the Flexeril as needed for severe pain and muscle relaxation. Drink plenty of water. Get plenty of rest. Return to the emergency department for any other concerns. Problem Qualifiers Primary Impression: Shoulder pain, left Chronicity: unspecified Qualified Codes: M25.512 - Pain in left shoulder DARRIN SHEPARD-PARAM Jun 15, 2018 17:52
[2018-06-15] MEDS ORDERED: FOLI0.4T56 PO (17:57)
--- NOTE | 2018-06-15 18:41 | EKG ---
FACILITY: [facility] [place] PATIENT NAME: TORO PALACIOS : [id number] MR: [id number] V: [id number] EXAM DATE: ORDERING PHYSICIAN: DARRIN SHEPARD TECHNOLOGIST: ROLF Test Reason : CP Blood Pressure : / mmHG Vent. Rate : 073 BPM Atrial Rate : 073 BPM P-R Int : 260 ms QRS Dur : 088 ms QT Int : 368 ms P-R-T Axes : 058 055 059 degrees QTc Int : 405 ms Sinus rhythm with 1st degree AV block Otherwise normal ECG When compared with ECG of 20-DEC-2017 13:38, premature atrial complexes are no longer present Confirmed by Damian Sage ([id number]) on 06/15/2018 8:05:33 PM Referred By: RASHEEDA Confirmed By:Damian Rivera
[2018-06-15 18:45] LABS: PLATELET COUNT, AUTOMATED 182 K/uL (150-450)
--- NOTE | 2018-06-15 20:06 | RADIOLOGY IMAGING REPORT ---
FACILITY: [facility] [place] PATIENT NAME: Sheldon Lacy : 1940 MR: [id number] V: [id number] EXAM DATE: ORDERING PHYSICIAN: DARRIN SHEPARD TECHNOLOGIST: [place] [facility] [place] Sheldon Lacy : 1940 Visit/Account:[id number] Date of Sevice: 06/15/2018 Study: Frontal and lateral views of the chest Indication: Left posterior rib pain Comparison study: December 20, 2017 Findings: PA and lateral views of the chest demonstrate no evidence of acute infiltrate. There is no evidence of pleural effusion. There is no evidence of pneumothorax. The mediastinal, cardiac, and diaphragmatic contours are unremarkable. There are old upper left rib fractures present. There is no evidence of acute left-sided rib fracture . The patient is status post bilateral shoulder surgery. IMPRESSION: No acute cardiopulmonary abnormality identified. There is no evidence of acute left-sided rib fracture. Report Dictated By: Sridhar Alanis at 06/15/2018 8:01 PM Report E-Signed By: Sridhar Alanis at 06/15/2018 8:02 PM WSN:[id number]
--- NOTE | 2018-06-15 20:11 | RADIOLOGY IMAGING REPORT ---
FACILITY: [facility] PATIENT NAME: Sheldon Lacy : 1940 MR: [id number] V: [id number] EXAM DATE: ORDERING PHYSICIAN: DARRIN SHEPARD TECHNOLOGIST: [facility] Patient: Sheldon Lacy : 1940 Visit/Account:[id number] Date of Sevice: 06/15/2018 Study: RIBS LEFT Indication: Pain Comparison study: October 09, 2017 Findings: 2 views of the left ribs demonstrates old fractures of the left fifth rib. This was present on the previous study. A skin marker was placed overlying the posterior eighth rib. No abnormalities identified in this area . There is no evidence of pleural effusion or pneumothorax on the left side. IMPRESSION: No evidence of acute left-sided rib fracture. Report Dictated By: Sridhar Aalnis at 06/15/2018 8:03 PM Report E-Signed By: Sridhar Alanis at 06/15/2018 8:07 PM WSN:[id number]
--- NOTE | 2018-06-15 20:29 | RADIOLOGY IMAGING REPORT ---
FACILITY: [facility] [place] PATIENT NAME: Sheldon Lacy : 1940 MR: [id number] V: [id number] EXAM DATE: ORDERING PHYSICIAN: DARRIN SHEPARD TECHNOLOGIST: [place] [facility] [place] Sheldon Lacy : 1940 Visit/Account:[id number] Date of Sevice: 06/15/2018 SHOULDER MIN 2 VIEWS LEFT HISTORY: recurrent rib pain into chest COMPARISON: None FINDINGS: There is no evidence of acute fracture or dislocation. There are no significant degenerati ve changes. The acromioclavicular joint is normal in appearance. The patient is status post glenohu meral joint replacement. The appearance of the prosthesis is unremarkable. There is no evidence of scapular fracture. IMPRESSION: No acute osseous abnormality Report Dictated By: Sridhar Alanis at 06/15/2018 8:23 PM Report E-Signed By: Sridhar Alanis at 06/15/2018 8:24 PM WSN:[id number]
[2018-06-15 20:30] VITALS: BP 142/88
[2018-06-15] MEDS ORDERED: CYCLOBENZAPRINE HCL 10 MG TH PO ONE (20:40)
[2018-06-15] MEDS ORDERED: CYCL10TA29 PO (20:42)
== END 2018-06-15 20:53 | disposition home or self-care (01) ==
LOC: ER 18:09
DX: M25.512 Pain in left shoulder (principal); M79.1 Myalgia
CPT/HCPCS: 71046; 71100; 82040; 82247; 82310; 82374; 82435; 82565; 82947; 84075; 84132; 84155; 84295; 84450; 84460; 84484; 84520; 85025; 93005; 99284

== ENCOUNTER 2018-09-05 11:36 | Emergency (ER) | payer MEDICARE, OTHER ==
[~2018-09-05 11:36] MED LIST changes: +CYCL10TA29 PO; +FOLI0.4T56 PO
[2018-09-05 11:46] VITALS: BP 132/97
[2018-09-05] MEDS ORDERED: BENZ100C4 PO (11:47)
[2018-09-05] MEDS ORDERED: AZIT-1 PO (11:47)
[2018-09-05] MEDS ORDERED: ALB18R INH (11:47)
--- NOTE | 2018-09-05 11:49 | ER Report ---
History and Physical Time Seen By MD: 11:50 Hx. of Stated Complaint: C/O PERSISTENT BRONCHITIS, SOB, DRY COUGH SINCE . ON ZPAK. HPI/ROS CHIEF COMPLAINT: Cough HISTORY OF PRESENT ILLNESS: This is a 77-year-old male presents to emergency department for a cough. Patient was diagnosed with bronchitis earlier this week, placed on a Z-Abraham, given a Ventolin inhaler as well as Tessalon Perles. Patient states that his symptoms have not really changed continues to have a dry nonproductive cough. No fevers or chills. No nausea or vomiting. States he was instructed to follow up if there is no improvement. Patient denies chest pain. REVIEW OF SYSTEMS: Respiratory: As above. Cardiovascular: No chest pain, no palpitations. Gastrointestinal: No vomiting, no abdominal pain. Musculoskeletal: No back pain. Allergies: Coded Allergies: No Known Drug Allergies (Verified , 09/05/18) Home Meds Active Scripts Prednisone (PREDNISONE) 20 Mg Tablet, 20 MG PO BID, #10 TAB Prov:DARRIN SHEPARD [facility]-BC 09/05/18 Cyclobenzaprine Hcl (CYCLOBENZAPRINE HCL) 10 Mg Tablet, 10 MG PO TID, #12 TAB 0 Refills Prov:DARIRN SHEPARD [facility]-BC 06/15/18 Rosuvastatin Calcium (CRESTOR) 20 Mg Tablet, 20 MG PO QDAY, #30 TAB 9 Refills Prov:CHASIDY RICHARDSON MD 06/21/16 Trazodone Hcl (TRAZODONE HCL) 50 Mg Tablet, 0.5 TAB PO QHS, #90 TAB 3 Refills Prov:CHASIDY RICHARDSON MD 06/21/16 Tamsulosin Hcl (TAMSULOSIN HCL) 0.4 Mg Cap.er.24h, 0.4 MG PO QODAY, #90 CAP 3 Refills Prov:CHASIDY RICHARDSON MD 06/21/16 Reported Medications Albuterol Sulfate (VENTOLIN HFA) 18 Gm Inh, 1-2 PUFF INH 3-4XD, INH 09/05/18 Benzonatate 100 Mg Cap (TESSALON PERLE 100 MG CAP) 100 Mg Capsule, 100 MG PO TID, #15 CAP 09/05/18 Azithromycin (ZITHROMAX) 250 Mg Tablet, 1 TAB PO QDAY, TAB 09/05/18 Folic Acid (FOLIC ACID) 0.4 Mg Tablet, 0.4 MG PO QDAY 06/15/18 Cholecalciferol (Vitamin D3) (VITAMIN D3) 1,000 Unit Tablet, 1000 UNIT PO, TAB 11/26/17 Cyanocobalamin (Vitamin B-12) (VITAMIN B-12) 1,000 Mcg Tablet, 1000 MCG PO 11/26/17 Omeprazole (OMEPRAZOLE) 20 Mg Capsule.dr, 1 CAP PO QDAY, CAP 11/26/17 Aspirin (ASPIRIN) 81 Mg Tab.chew, 1 TAB PO QDAY, TAB.CHEW TAKE 1 TABLET BY MOUTH EVERY DAY 10/24/14 Past Medical/Surgical History The patient has a past medical and surgical history of vertigo, hypertension, hypercholesterolemia, GERD, left kidney stone, enlarged prostate, arthritis, mainly blind, visually impaired, anxiety, depression, appendectomy, prost atectomy, ring finger tendon release, 3rd finger tendon release, biceps surgery, wrote [facility], laser surgery to both eyes, cataract removal. Reviewed Nurses Notes: Yes Hx Smoking: No Smoking Status: Former Smoker Exposure to Second Hand Smoke?: No Hx Substance Use Disorder: No Hx Alcohol Use: Yes Constitutional Vital Sign - Last 24 Hours 09/05/18 09/05/18 09/05/18 09/05/18 11:44 11:46 11:51 12:06 Temp 97.9 Pulse 82 75 B/P (MAP) 132/97 (109) Pulse Ox 94 94 09/05/18 09/05/18 09/05/18 09/05/18 12:10 12:10 12:21 12:36 Pulse 69 71 68 Resp 17 Pulse Ox 96 92 91 O2 Delivery Room Air Physical Exam General Appearance: The patient is alert, has no immediate need for airway protection and no current signs of toxicity. Eyes: Pupils equal and round no injection. Respiratory: Chest is non tender, very faint adventitious lung sounds in the left lower field otherwise clear throughout. Cardiac: regular rate and rhythm, no murmurs, clicks or rubs. Gastrointestinal: Abdomen is soft and non tender, no masses, bowel sounds normal. Musculoskeletal: Neck: Neck is supple and non tender. Extremities have full range of motion and are non tender. Skin: No rashes or lesions. DIFFERENTIAL DIAGNOSIS: After history and physical exam differential diagnosis was considered for bronchitis, pneumonia, pulmonary embolus, asthma and seasonal allergies. Medical Decision Making EKG/Imaging Imaging CHEST PA AND LAT HISTORY: Cough. COMPARISON: Chest x-ray June 15, 2018. FINDINGS: Cardiomediastinal contours: The heart size is normal. Lungs and pleura: There is no finding of an infiltrate, lymphadenopathy or pleural effusion. Bones/soft tissues: Status post left shoulder arthroplasty. Postoperative changes right shoulder. IMPRESSION: No active disease in the chest. Report Dictated By: Magdiel Walton MD at 09/05/2018 1:01 PM Report E-Signed By: Magdiel Walton MD at 09/05/2018 1:01 PM WSN:[id number] ED Course/Re-evaluation ED Course The patient was admitted to room. A history and physical were obtained. Differential diagnoses were considered. A DuoNeb was given with mild relief, a two-view chest x-ray was negative for any acute cardiopulmonary abnormalities. I did review the imaging results with the patient. I did give the patient a prescription for prednisone, he does have a prescription for albuterol inhaler as well as benzonatate, I also did send him home with a prescription for an AeroChamber for his inhaler. I did recommend that he follows up with his primary care provider within one week for reevaluation. Return to ER for any concerns or worsening symptoms. Patient was understanding and was discharged home. Decision to Disposition Date: Sep 05, 2018 Decision to Disposition Time: 13:20 Depart Departure Latest Vital Signs Vital Signs Date Time Temp Pulse Resp B/P (MAP) Pulse Ox O2 Delivery O2 Flow Rate FiO2 09/05/18 12:36 68 91 09/05/18 12:10 17 09/05/18 12:10 Room Air 09/05/18 11:46 132/97 (109) 09/05/18 11:44 97.9 Impression: Primary Impression: Cough Condition: Improved Disposition: HOME OR SELF-CARE Referrals: LEONARDO VILLA (PCP) New Scripts Prednisone (PREDNISONE) 20 Mg Tablet 20 MG PO BID, #10 TAB Prov: DARRIN SHEPARD [employer]-BC 09/05/18 Patient Instructions: Acute Bronchitis (ED), Acute Cough (ED) Additional Instructions: Please use the aerochamber when using your albuterol inhaler. Take Ibuprofen or Tylenol as needed for pain. Continue your regular medications. Drink plenty of water. Get plenty of rest. Return to the ED for any other concerns or worsening symptoms. Take the prednisone as directed. DARRIN SHEPARD [employer]-BC Sep 05, 2018 11:49
[2018-09-05] MEDS ORDERED: ALBUTEROL/IPRATROPIUM 3 ML NEB NEB ONE (12:00)
[2018-09-05] MEDS ORDERED: PRED20TA6 PO (12:59)
--- NOTE | 2018-09-05 13:05 | RADIOLOGY IMAGING REPORT ---
FACILITY: [facility] PATIENT NAME: Sheldon Lacy : 1940 MR: [id number] V: [id number] EXAM DATE: ORDERING PHYSICIAN: DARRIN SHEPARD TECHNOLOGIST: Location[place] [facility] [place] Patient: Sheldon Lacy : 1940 Visit/Account:[id number] Date of Sevice: 09/05/2018 CHEST PA AND LAT HISTORY: Cough. COMPARISON: Chest x-ray June 15, 2018. FINDINGS: Cardiomediastinal contours: The heart size is normal. Lungs and pleura: There is no finding of an infiltrate, lymphadenopathy or pleural effusion. Bones/soft tissues: Status post left shoulder arthroplasty. Postoperative changes right shoulder. IMPRESSION: No active disease in the chest. Report Dictated By: Magdiel Walton MD at 09/05/2018 1:01 PM Report E-Signed By: Magdiel Walton MD at 09/05/2018 1:01 PM WSN:[id number]
== END 2018-09-05 13:31 | disposition home or self-care (01) ==
LOC: ER 11:41
DX: R05 Cough (principal)
CPT/HCPCS: 71046; 94640; 99283; J7620

== ENCOUNTER → 2019-01-22 | Outpatient (CLI) | payer MEDICARE, OTHER ==
[~2019-01-22] MED LIST changes: +ALB18R INH; +BENZ100C4 PO; -ROSU20TA23 PO; +ROSU20TA24 PO
== END ==
LOC: LAB 10:04
PROVIDERS: ATTEND Nurse Practitioner Family
DX: E87.8 Other disorders of electrolyte and fluid balance, not elsewhere classified (principal); E53.8 Deficiency of other specified B group vitamins; R53.81 Other malaise; Z12.5 Encounter for screening for malignant neoplasm of prostate; R73.01 Impaired fasting glucose
CPT/HCPCS: 36415; 82306; 82607; 83036; 84443; 85027; G0103; 82040; 82247; 82310; 82374; 82435; 82465; 82565; 82947; 83718; 84075; 84132; 84153; 84155; 84295; 84450; 84460; 84478; 84520

== ENCOUNTER → 2019-02-12 | Outpatient (CLI) | payer MEDICARE, OTHER ==
--- NOTE | 2019-02-12 20:00 | RADIOLOGY IMAGING REPORT ---
FACILITY: [facility] [place] PATIENT NAME: Sheldon Lacy : 1940 MR: [id number] V: [id number] EXAM DATE: ORDERING PHYSICIAN: LEONARDO VILLA TECHNOLOGIST: Location: [facility] Patient: Sheldon Lacy : 1940 Visit/Account:[id number] Date of Sevice: 02/12/2019 DEXA Scan Clinical history: Screening. Comparison: DEXA scan from 12/04/2017. LUMBAR SPINE: The bone mineral density (BMD) measured from L1-L4 correlates with a Z-score -0.7 and a T-score of - 1.6 which is consistent with osteopenia as defined by the World Health Organization. The correspondi ng risk of fracture in the lumbar spine is increased 3-4 times compared with a young adult reference population. This value has increased by 0.6 % since the prior study. More than 5% change is conside red significant. HIP: Bone mineral density (BMD) measured in the Left femoral neck region correlates with a Z-score -0.9 an d a T-score of -2.4 which is consistent osteopenia as defined by the World Health Organization. Th e corresponding risk of fracture in the hip is increased 4-6 times compared with a young adult refere nce population. The total hip value has increased by 0.4 % since the prior study. More than 5% zamora e is considered significant. Bone mineral density (BMD) measured in the Femoral Neck region measures 0.759 g/cm2. IMPRESSION: 1. Lumbar spine: Consistent with osteopenia. 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 2. Left Hip: Consistent with osteopenia. There has been No significant change in the bone mineral d ensity of the total hip since the previous exam. 3. Femoral Neck: Bone Mineral Density is 0.759 g/cm2 The next DEXA scan of this patient should include the following sites: L1-L4 and the left hip. FRAX? WHO Fracture Risk Assessment Tool link: <http://www.shef.ac.uk/FRAX/tool.jsp?locationValue=9> PLEASE NOTE: 1) The World Health Organization defines low BMD as follows: T-score Normal > -1 Osteopenia < -1 and > -2.5 Osteoporosis < -2.5 without fractures Established osteoporosis < -2.5 with fractures 2) In general, you may wish to consider: Diagnosis Treatment Follow-up DEXA Normal BMD Prevention 2-3 years Osteopenia Prevention/therapy 1-2 years Osteoporosis Therapy Yearly 3) Fracture risk estimated from the T-score is more accurate for vertebral fractures (often spontane ous) than for hip fractures. Report Dictated By: Zenon Cancino MD at 02/12/2019 7:55 PM Report E-Signed By: Zenon Cancino MD at 02/12/2019 7:57 PM WSN:[id number]
== END ==
LOC: RAD 09:56
PROVIDERS: ATTEND Nurse Practitioner Family
DX: M81.0 Age-related osteoporosis without current pathological fracture (principal)
CPT/HCPCS: 77080